=== PATIENT | male | born 1985 | race Caucasian/White ===

== ENCOUNTER 2022-11-13 19:37 | Emergency (ER) | payer OTHER | END 2022-11-13 20:29 | disposition home or self-care (01) | LOC: CSHERS 19:37 | DX: M79.662 Pain in left lower leg (principal); M54.42 Lumbago with sciatica, left side; I10 Essential (primary) hypertension; F17.220 Nicotine dependence, chewing tobacco, uncomplicated | CPT/HCPCS: 99283 ==

== ENCOUNTER 2024-05-12 18:33 | Emergency (ER) | payer OTHER | END 2024-05-12 19:21 | disposition left against medical advice (07) | LOC: CSHERS 18:33 | DX: Z53.21 Procedure and treatment not carried out due to patient leaving prior to being seen by health care provider (principal) ==